=== PATIENT | female | born 1995 | race African-American/Black ===

== ENCOUNTER 2020-07-02 10:30 | Emergency (ER) | payer SELFPAY ==
[~2020-07-02] VITALS: Ht 167.6 cm; Wt 82.0 kg
[2020-07-02] MEDS ORDERED: CLINDAMYCIN 600 MG in DEXTROSE 5% WATER 50 ML IV ONE (10:45)
[2020-07-02] MEDS ORDERED: DEXAMETHASONE 10 MG/ML VIAL IV ONE (10:45)
[2020-07-02] MEDS ORDERED: CEFTRIAXONE 2 G PREMIX 50 ML IV ONE (10:45)
[2020-07-02] MEDS ORDERED: KETOROLAC 15MG/ML VIAL IV ONE (10:45)
[2020-07-02] MEDS ORDERED: AMPICILLIN SOD/SULBACTAM NA 3 G in SODIUM CHLORIDE 0.9% 100 ML IV SCH (11:00)
[2020-07-02] MEDS ORDERED: SODIUM CHLORIDE 0.9% 1,000 ML IV ONE (11:15)
[2020-07-02] MEDS ORDERED: ACET-2708 MT (12:17)
[2020-07-02] MEDS ORDERED: AMOX-424 MT (12:17)
[2020-07-02] MEDS ORDERED: NAPR-1176 MT (12:17)
[2020-07-02 13:16] VITALS: BP 128/90
== END 2020-07-02 13:17 | disposition home or self-care (01) ==
LOC: ER 10:38
DX: J36 Peritonsillar abscess (principal)
CPT/HCPCS: 81025; 96365; 96375; 99284; J0295; J1100; J1885; J3490; J7030; J7050; J7060; Z7610

== ENCOUNTER 2023-04-26 23:32 | Emergency (ER) | payer SELFPAY ==
[~2023-04-26] VITALS: Ht 167.6 cm; Wt 88.0 kg
[~2023-04-26 23:32] MED LIST: ACET-2708 MT; AMOX-424 MT; NAPR-1176 MT
[2023-04-26 23:59] VITALS: O2SAT 100
[2023-04-27 00:24] LABS: BASOPHILS % 0.5 % (0.0-2.0); EOSINOPHILS % 1.2 % (0.0-5.0); HEMATOCRIT. 35.9 % (36.0-48.0); HEMOGLOBIN. 11.7 g/dL (12.0-16.0); LYMPHOCYTES % 22.5 % (20.0-50.0); MEAN CORPUSCULAR HGB CONC 32.6 g/dL (31.0-37.0); MEAN CORPUSCULAR VOLUME 88.9 fL (81.0-99.0); MEAN PLATELET VOLUME 7.1 fl (7.4-10.4); MONOCYTES % 12.1 % (2.0-8.0); NEUTROPHILS % 63.7 % (40.0-76.0); PLATELET 315 x1000/uL (130-400); RED BLOOD CELL COUNT 4.04 mill/uL (4.2-5.4); RED CELL DISTRIBUTION WIDTH 16.7 % (11.6-14.6); WHITE BLOOD COUNT 10.1 x1000/uL (4.5-11.0)
[2023-04-27 00:42] LABS: ALANINE AMINOTRANSFERASE 13 IU/L (10-49); ALBUMIN 4.9 g/dL (3.2-4.8); ASPARTATE AMINOTRANSFERASE 16 IU/L (<34); BILIRUBIN TOTAL 0.2 mg/dL (0.1-1.0); CALCIUM 9.5 mg/dL (8.7-10.4); CARBON DIOXIDE 27 mEq/L (21-32); CHLORIDE 104 mEq/L (98-107); CREATININE 0.8 mg/dL (0.6-1.0); GLUCOSE 99 mg/dL (70-105); POTASSIUM 3.6 mEq/L (3.5-5.1); PROTEIN TOTAL 8.6 g/dL (6.0-8.3); SODIUM 136 mEq/L (136-145); UREA NITROGEN BLOOD 7 mg/dL (9-23)
[2023-04-27 00:59] LABS: CLARITY URINE CLOUDY (CLEAR); COLOR URINE DARK YELLOW (YELLOW); GLUCOSE URINE NEGATIVE (NEGATIVE); KETONES URINE TRACE (NEGATIVE); LEUKOCYTE ESTERASE URINE 1+ (NEGATIVE); NITRITE URINE POSITIVE (NEGATIVE); OCCULT BLOOD URINE 3+ (NEGATIVE); PH URINE 5.5 (4.5-8.0); PROTEIN URINE 1+ (NEGATIVE); SPECIFIC GRAVITY URINE 1.025 (1.005-1.030)
[2023-04-27 01:34] LABS: UCG SCREEN POSITIVE
[2023-04-27 04:26] LABS: BACTERIA URINE 3+; RBC URINE TNTC /hpf (0-2); SQUAMOUS EPITHELIAL CELL URINE 1+ /lpf (RARE/1+)
[2023-04-27 05:10] VITALS: BP 125/85; PULSE 78; RESP 16; TEMP 98.5
== END 2023-04-27 05:10 | disposition home or self-care (01) ==
LOC: ER 23:32
DX: O03.9 Complete or unspecified spontaneous abortion without complication (principal); Z3A.08 8 weeks gestation of pregnancy
CPT/HCPCS: 36415; 76830; 76856; 80053; 81003; 81025; 84702; 85025; 86850; 86900; 87077; 87186; 99284

== ENCOUNTER 2023-05-01 07:29 | Emergency (ER) | payer SELFPAY ==
[~2023-05-01] VITALS: Ht 172.7 cm; Wt 87.0 kg
[2023-05-01 07:38] VITALS: O2SAT 99
[2023-05-01 08:05] LABS: CLARITY URINE CLEAR (CLEAR); COLOR URINE YELLOW (YELLOW); GLUCOSE URINE NEGATIVE (NEGATIVE); KETONES URINE NEGATIVE (NEGATIVE); LEUKOCYTE ESTERASE URINE 1+ (NEGATIVE); NITRITE URINE POSITIVE (NEGATIVE); OCCULT BLOOD URINE 2+ (NEGATIVE); PH URINE 6.5 (4.5-8.0); PROTEIN URINE NEGATIVE (NEGATIVE); SPECIFIC GRAVITY URINE 1.014 (1.005-1.030); UROBILINOGEN URINE 0.2 E.U./dL (0.2-1.0)
[2023-05-01 08:19] LABS: SQUAMOUS EPITHELIAL CELL URINE 3+ /lpf (RARE/1+)
[2023-05-01 08:20] LABS: WBC URINE 15-25 /hpf (0-2)
[2023-05-01 08:21] LABS: BACTERIA URINE 4+
[2023-05-01 08:38] LABS: HCG SCREEN POSITIVE
[2023-05-01 11:56] VITALS: BP 113/72; PULSE 99; RESP 20; TEMP 98.5
== END 2023-05-01 13:26 | disposition home or self-care (01) ==
LOC: ER 07:29
DX: O26.891 Other specified pregnancy related conditions, first trimester (principal); Z3A.00 Weeks of gestation of pregnancy not specified
CPT/HCPCS: 36415; 76801; 81003; 81025; 84702; 84703; 99284